=== PATIENT | female | born 1950 | race Caucasian/White ===

== ENCOUNTER 2025-02-11 10:19 | Outpatient (AMB) | payer MEDICARE, SELFPAY ==
--- NOTE | 2025-02-11 10:29 | PD.ORTHCLVIS ---
Vital signs 02/11/25 10:32 Height 1.68 m Height Method Stated Weight 55.111 kg Weight Measurement Method Standing Scale BMI 19.5 BP 145/76 H Blood Pressure Source Automatic Cuff Blood Pressure Location Right Upper Arm Position Sitting Respiration 17 Pulse 83 Pulse Source Monitor Temp 97.8 F Temp Source Temporal Artery Scan Pulse Oximetry (%) 96 Oxygen Delivery Method Room Air Med/Allergies Allergies & Medications Allergies NKA* Allergy (Uncoded 02/11/25 10:33) Medication Reconciliation alprazolam 1 mg tablet (Xanax) 1 mg PO QDAY 07/04/23 [History Confirmed 02/11/25] meloxicam 7.5 mg tablet 7.5 mg PO QDAY 07/04/23 [History Confirmed 02/11/25] tramadol 50 mg tablet 50 mg PO Q8H PRN pain #28 tabs 11/21/23 [Rx Confirmed 02/11/25] pregabalin 75 mg capsule (Lyrica) 75 mg PO BID #60 caps 11/28/23 [Rx Confirmed 02/11/25] methylprednisolone 4 mg tablets in a dose pack (Medrol (Froilan)) See Rx Instructions PO PER PKG DIR #21 tabs 12/11/23 [Rx Confirmed 02/11/25] methylprednisolone 4 mg tablets in a dose pack (Medrol (Froilan)) See Rx Instructions PO PER PKG DIR #21 tabs 12/29/23 [Rx Confirmed 02/11/25] Exam Exam Patient is in no acute distress and is cooperative with the examination today. Breathing is nonlabored. In no respiratory distress. Bilateral extremities were evaluated and demonstrates sensation intact to light touch. Palpable pedal pulses are present. No significant edema is present. Bilateral hips were examined. The patient has no pain with log roll of the hips. Internal rotation to 30 degrees and external rotation to 30 degrees is painless. Negative FADIR. The left knee wasexamined. The left knee is in neutral alignment. Range of motion from 0-120 degrees. Knee is stable to varus and valgus as well as AP translation with <5mm. Patient has a negative McMurrays. There is no pain with patellofemoral compression and no crepitus noted. The knee is nontender to palpation diffusely. The right knee was also examined. The right knee is in neutral alignment. Range of motion from 0-120 degrees. Knee is stable to varus and valgus as well as AP translation with <5mm. Patient has a negative McMurrays. There is no pain with patellofemoral compression and no crepitus noted. The knee is nontender to palpation diffusely. X-rays demonstrate no acute pathology of her hip, knee, or her back. There is a old L1 compression fracture in her spine. The x-rays are dated 11/28/2023 Assessment and Plan Problem List (1) Pain in left hip: Status: Acute Plan: Patient is a 72-year-old female with lumbar radiculopathy. She has significant right knee pain as well. She has mild to moderate arthritis Recommend knee cortisone injection as patient would like to proceed with conservative treatment at this time. The risks and benefits of the procedure were reviewed with the patient and patient gave verbal consent to continue with the procedure. Procedure: performed by Dr. Pineda Using sterile technique the Right knee was thoroughly prepped with alcohol, and approximately 1 cc of Kenalog 40 mg/mL and 4 cc of 1% lidocaine was injected without resistance into the medial tibial femoral joint space. The patient tolerated the procedure. (2) Lumbar radiculopathy: Status: Acute Advanced Care Planning Discussion Advance care planning discussed with:: patient Office Procedures GNS Level of Care Nursing/Assessment Patient Status: Established Patient Nursing Assessment/Reassesment: Medication Reconciliation, Update PMH in EMR and Vital Signs Coordination of Care: Complex Care and Chronic Disease 1-5, Consent,records obtained, informed consent, Education Simp Pt/Fam, Results/Orders obtained and Staff clarify orders Established Patient Charge Established Patient Point Assignment: 90 Established Patient Point Charge: EP Level 3 (80-115) Surgical Proc/IM SQ injection Major Surgical Procedure: Yes (knee injection ) Medication Given Medication Given Medication Given: Yes Documented Dose Given: 4 Route: Infiitration Medication Given Medication Given Medication Given: Yes Documented Dose Given: 1 Route: Infiitration Office Meds Xylocaine 10 mg/mL (1 %) injection solution Performing Provider: Marc Pineda MD Performing Location: [facility] Administered by: Marc Pineda MD on 02/11/25 11:02 Dose Route Admin Location Dispensed Lot Number Expiration Date [facility] [employer] 20 mL Infiltration KNEE 20 mL [id number] 05/26/28 21690-035-36 [facility] triamcinolone acetonide 40 mg/mL suspension for injection Performing Provider: Marc Pineda MD Performing Location: [facility] Administered by: Marc Pineda MD on 02/11/25 11:02 Dose Route Admin Location Dispensed Lot Number Expiration Date [employer] 40 mg intra-articular KNEE 1 mL [id number] 08/25/26 3047-6690-88 [employer] [place] Intake Visit Data Collection New Patient or Established: Established Patient (seen at [facility] within 3 years) Reason for Visit:: RT KNEE PAIN Seen by Clinical Staff ONLY (RN/MA): No Tree Specialist Required: No PCP or OBGYN visit in last 3 months: Yes Hx Now: No Do You Feel Safe at Home: Yes Authorities Contacted: N/A Questionairres Past Medical History Past Medical History Have you ever been diagnosed with any of the following: Subjective Visit Visit for: knee (RT KNEE PAIN ) Immunization / Flu Flu Vaccine in the Last 12 Months: No Flu Vaccine Exclusion Criteria: Refused by Patient History of Present Illness Chief complaint: Right knee pain And is a pleasant 74-year-old female department no fracture right knee pain. Anti-inflammatories and injections in the past. She has done well with conservative treatment. She would like a repeat cortisone injection on the right. We have not seen her in over a year Personal History Red flag PMH: none Pain Pain level (0-10): 3 Pain duration: 120 DAYS Pain location: anterior Pain quality: other (specify) (POPPING DISCOMFORT ) Pain timing: increases with activity Associated signs & symptoms: stiffness Ambulatory data Ambulatory device: none Walking distance (minutes): 1 Treatments Number of previous injections: 2 Improvement with previous injections: Yes Number of Physical Therapy sessions: 0 Improvement with NSAIDS: n/a Review of Systems Review of Systems: All systems negative unless otherwise noted in HPI.
[2025-02-11 10:32] VITALS: BP 145/76; PULSE 83; RESP 17; TEMP 36.6; O2SAT 96; BMI 19.5
== END 2025-02-11 11:21 | disposition home or self-care (01) ==
PROVIDERS: PCP Physician Assistant; Referring Provider Physician Assistant; Supervising Provider Orthopaedic Surgery Adult Reconstructive Orthopaedic Surgery; Visit Provider Orthopaedic Surgery Adult Reconstructive Orthopaedic Surgery
DX: M25.561 Pain in right knee (principal); M25.552 Pain in left hip; M54.16 Radiculopathy, lumbar region; M19.90 Unspecified osteoarthritis, unspecified site
CPT/HCPCS: 20610; 99213; J3301; J3490; G0463

== ENCOUNTER 2025-05-16 10:42 | Outpatient (AMB) | payer MEDICARE, SELFPAY ==
--- NOTE | 2025-05-16 10:59 | PD.ORTHCLVIS ---
Vital signs 05/16/25 11:00 Height 1.68 m Height Method Measured Weight 55.593 kg Weight Measurement Method Standing Scale BMI 19.7 BP 159/76 H Blood Pressure Source Automatic Cuff Blood Pressure Location Left Upper Arm Position Sitting Respiration 19 Pulse 84 Pulse Source Monitor Temp 97.8 F Temp Source Temporal Artery Scan Pulse Oximetry (%) 93 L Oxygen Delivery Method Room Air Med/Allergies Allergies & Medications Allergies NKA* Allergy (Uncoded 05/16/25 11:01) Medication Reconciliation alprazolam 1 mg tablet (Xanax) 1 mg PO QDAY 07/04/23 [History Confirmed 05/16/25] meloxicam 7.5 mg tablet 7.5 mg PO QDAY 07/04/23 [History Confirmed 05/16/25] tramadol 50 mg tablet 50 mg PO Q8H PRN pain #28 tabs 11/21/23 [Rx Confirmed 05/16/25] methylprednisolone 4 mg tablets in a dose pack (Medrol (Froilan)) See Rx Instructions PO PER PKG DIR #21 tabs 12/11/23 [Rx Confirmed 05/16/25] methylprednisolone 4 mg tablets in a dose pack (Medrol (Froialn)) See Rx Instructions PO PER PKG DIR #21 tabs 12/29/23 [Rx Confirmed 05/16/25] methylprednisolone 4 mg tablets in a dose pack (Medrol (Froilan)) See Rx Instructions PO PER PKG DIR #21 tabs 05/16/25 [Rx] pregabalin 75 mg capsule (Lyrica) 75 mg PO BID #60 caps 05/16/25 [Rx] Exam Exam Patient is in no acute distress and is cooperative with the examination today. Breathing is nonlabored. In no respiratory distress. Bilateral extremities were evaluated and demonstrates sensation intact to light touch. Palpable pedal pulses are present. No significant edema is present. Bilateral hips were examined. The patient has no pain with log roll of the hips. Internal rotation to 30 degrees and external rotation to 30 degrees is painless. Negative FADIR. The left knee wasexamined. The left knee is in neutral alignment. Range of motion from 0-120 degrees. Knee is stable to varus and valgus as well as AP translation with <5mm. Patient has a negative McMurrays. There is no pain with patellofemoral compression and no crepitus noted. The knee is nontender to palpation diffusely. The right knee was also examined. The right knee is in neutral alignment. Range of motion from 0-120 degrees. Knee is stable to varus and valgus as well as AP translation with <5mm. Patient has a negative McMurrays. There is no pain with patellofemoral compression and no crepitus noted. The knee is nontender to palpation diffusely. X-rays demonstrate no acute pathology of her hip, knee, or her back. There is a old L1 compression fracture in her spine. The x-rays are dated 11/28/2023 Assessment and Plan Problem List (1) Pain in left hip: Status: Acute Plan: Patient is a 72-year-old female with lumbar radiculopathy. She has significant right knee pain as well. She has mild to moderate arthritis Recommend knee cortisone injection as patient would like to proceed with conservative treatment at this time. The risks and benefits of the procedure were reviewed with the patient and patient gave verbal consent to continue with the procedure. Procedure: performed by Dr. Pineda Using sterile technique the Right knee was thoroughly prepped with alcohol, and approximately 1 cc of Depo-Medrol 80mg/mL and 4 cc of 0.2% ropivacaine was injected without resistance into the medial tibial femoral joint space. The patient tolerated the procedure. (2) Lumbar radiculopathy: Status: Acute Advanced Care Planning Discussion Advance care planning discussed with:: patient Office Procedures GNS Level of Care Nursing/Assessment Patient Status: Established Patient Nursing Assessment/Reassesment: Medication Reconciliation, Orthostatic Vitals, Update PMH in EMR and Vital Signs Coordination of Care: Complex Care and Chronic Disease 1-5, Education Complex Pt/Fam, Consent,records obtained, informed consent, Results/Orders obtained and Staff clarify orders Established Patient Charge Established Patient Point Assignment: 105 Established Patient Point Charge: EP Level 3 (80-115) Surgical Proc/IM SQ injection Major Surgical Procedure: Yes (KNEE INJECTION) Medication Given Medication Given Medication Given: Yes Documented Dose Given: 1 Route: Infiitration Medication Given Medication Given Medication Given: Yes Documented Dose Given: 4 Route: Infiitration Office Meds methylprednisolone acetate 80 mg/mL suspension for injection Performing Provider: Marc Pineda MD Performing Location: [facility] Administered by: Marc Pineda MD on 05/16/25 11:11 Dose Route Admin Location Dispensed Lot Number Expiration Date [facility] [employer] 80 mg intra-articular KNEE 1 mL [id number] 02/22/27 [address]-5 [employer] ropivacaine (PF) 2 mg/mL (0.2 %) injection solution Performing Provider: Marc Pineda MD Performing Location: [facility] Administered by: Marc Pineda MD on 05/16/25 11:11 Dose Route Admin Location Dispensed Lot Number Expiration Date [facility] [employer] 20 mL Infiltration KNEE 20 mL [id number] 10/25/27 17913-325-61 [facility] Intake Visit Data Collection New Patient or Established: Established Patient (seen at [facility] within 3 years) Reason for Visit:: RT KNEE PAIN Seen by Clinical Staff ONLY (RN/MA): No Branch Examiner Required: No PCP or OBGYN visit in last 3 months: Yes Hx Now: No Do You Feel Safe at Home: Yes Authorities Contacted: N/A Questionairres Past Medical History Past Medical History Have you ever been diagnosed with any of the following: Subjective Visit Visit for: knee (RT KNEE PAIN ) Immunization / Flu Flu Vaccine in the Last 12 Months: No Flu Vaccine Exclusion Criteria: Refused by Patient History of Present Illness Chief complaint: Right knee pain And is a pleasant 74-year-old female department no fracture right knee pain. Anti-inflammatories and injections in the past. She has done well with conservative treatment. She would like a repeat cortisone injection on the right. We have not seen her in a year Personal History Red flag PMH: none Pain Pain level (0-10): 0 Pain duration: 120 DAYS Pain location: anterior Pain quality: other (specify) (POPPING DISCOMFORT ) Pain timing: increases with activity Associated signs & symptoms: stiffness Ambulatory data Ambulatory device: none Walking distance (minutes): 1 Treatments Number of previous injections: 2 Improvement with previous injections: Yes Number of Physical Therapy sessions: 0 Improvement with NSAIDS: n/a Review of Systems Review of Systems: All systems negative unless otherwise noted in HPI.
[2025-05-16 11:00] VITALS: BP 159/76; PULSE 84; RESP 19; TEMP 36.6; O2SAT 93; BMI 19.7
== END 2025-05-16 11:25 | disposition home or self-care (01) ==
LOC: HODSRG 10:42
PROVIDERS: PCP Physician Assistant; Referring Provider Physician Assistant; Supervising Provider Orthopaedic Surgery Adult Reconstructive Orthopaedic Surgery; Visit Provider Orthopaedic Surgery Adult Reconstructive Orthopaedic Surgery
DX: M25.552 Pain in left hip (principal); M54.16 Radiculopathy, lumbar region; M25.561 Pain in right knee; M19.90 Unspecified osteoarthritis, unspecified site
CPT/HCPCS: 20610; 99213; J1010; J2795; G0463